=== PATIENT | female | born 2000 | race Hispanic/Latino ===

== ENCOUNTER 2025-05-28 22:20 | Emergency (ER) | payer OTHER, SELFPAY ==
[~2025-05-28] VITALS: Ht 154.9 cm; Wt 69.5 kg
[2025-05-29] MEDS: ACETAMINOPHEN 500 MG TAB PO ONE (07:36)
[2025-05-29] MEDS: KETOROLAC 30 MG/ML 1 ML VIAL IV ONE (07:36)
[2025-05-29 07:42] LABS: BASO # 0.0 10^3/uL (0.0-0.2); BASO % 0.2 % (0.0-1.0); EOS # 0.0 10^3/uL (0.0-0.5); EOS % 0.3 % (0.0-3.0); LYMPH # 4.4 10^3/uL (1.5-5.0); LYMPH % 37.8 % (24.0-44.0); MONO # 0.6 10^3/uL (0.0-0.8); MONO % 5.5 % (2.0-8.0); NEUTROPHILS # 6.5 10^3/uL (1.5-8.5); NEUTROPHILS % 55.9 % (36.0-66.0); PLATELET COUNT, AUTOMATED 286 10^3/uL (150-450)
[2025-05-29 07:50] LABS: ERYTHROCYTE SEDIMENTATION RATE 14 mm/hr (0-20)
[2025-05-29 08:09] LABS: C REACTIVE PROTEIN QUANTITATIV < 0.50 MG/DL (<1.0); CALCIUM LEVEL 10.0 MG/DL (8.5-10.1); CARBON DIOXIDE LEVEL 25 MMOL/L (20-31); CHLORIDE LEVEL 103 MMOL/L (98-107); CREATININE FOR GFR 0.66 MG/DL (0.55-1.30); GLOMERULAR FILTRATION RATE > 90.0 (>60); MAGNESIUM LEVEL 2.5 MG/DL (1.8-2.4); POTASSIUM SERUM 3.6 MMOL/L (3.5-5.1); SODIUM LEVEL 142 MMOL/L (136-145)
[2025-05-29 08:12] LABS: FREE T4 1.34 NG/DL (0.89-1.76); VITAMIN B12 LEVEL 545 PG/ML (211-911)
[2025-05-29] MEDS ORDERED: PNV,1TAB3 PO (09:47)
[2025-05-29] MEDS ORDERED: VITA500038 PO (09:47)
[2025-05-29] MEDS ORDERED: JOLETAB PO (09:47)
[2025-05-29] MEDS ORDERED: MELO15TA28 PO (09:47)
[2025-05-29] MEDS ORDERED: TIZA10TA PO (09:47)
[2025-05-29] MEDS ORDERED: HOME MED LIST COMPLETE! XX SCH (09:50)
[2025-05-29] MEDS ORDERED: IBUP600T42 PO (10:38)
[2025-05-29] MEDS ORDERED: MEDR4PAK PO (10:38)
[2025-05-29] MEDS ORDERED: METH-1165 PO (10:38)
[2025-05-29 10:55] VITALS: BP 99/56; TEMP 98; O2SAT 97
== END 2025-05-29 10:55 | disposition home or self-care (01) ==
LOC: M ED 22:20
DX: S16.1XXA Strain of muscle, fascia and tendon at neck level, initial encounter (principal); X58.XXXA Exposure to other specified factors, initial encounter; E28.2 Polycystic ovarian syndrome; Y92.9 Unspecified place or not applicable; Y93.9 Activity, unspecified; Y99.9 Unspecified external cause status; Z79.1 Long term (current) use of non-steroidal anti-inflammatories (NSAID); Z79.899 Other long term (current) drug therapy
CPT/HCPCS: 70450; 72125; 80048; 82607; 83735; 84439; 84443; 85025; 85652; 86140; 96374; 99284; J1885